=== PATIENT | female | born 1985 | race Caucasian/White ===

== ENCOUNTER → 2019-07-01 | Outpatient (REF) | payer OTHER | LOC: M LAB REF 09:55 | PROVIDERS: ATTEND Internal Medicine Endocrinology, Diabetes & Metabolism | DX: E04.1 Nontoxic single thyroid nodule (principal) ==

== ENCOUNTER 2019-10-22 21:54 | Emergency (ER) | payer OTHER ==
[~2019-10-22] VITALS: Ht 157.5 cm; Wt 86.8 kg
[2019-10-22] MEDS ORDERED: LISI-538 PO (22:01)
[2019-10-22] MEDS ORDERED: OSEL75CA PO (22:01)
[2019-10-22] MEDS ORDERED: SYNT137T7 PO (22:01)
[2019-10-22] MEDS ORDERED: HYDR25TAB PO (22:01)
[2019-10-22] MEDS ORDERED: NS 1,000 ML IV ONE (23:00)
[2019-10-22] MEDS ORDERED: ONDANSETRON 4MG/2ML VIAL (J2405) IV ONE (23:00)
[2019-10-23 00:09] LABS: ALBUMIN 4.1 GM/DL (3.2-5.2); ALT/SGPT 45 U/L (12-78); BILIRUBIN,DIRECT 0.2 MG/DL (0.0-0.2); BILIRUBIN,TOTAL 0.4 MG/DL (0.2-1.0); BLOOD UREA NITROGEN 13 MG/DL (7-18); CALCIUM LEVEL 8.6 MG/DL (8.5-10.1); CARBON DIOXIDE LEVEL 27 MEQ/L (21-32); CHLORIDE LEVEL 100 MEQ/L (98-107); CREATININE FOR GFR 0.99 MG/DL (0.55-1.30); GLOMERULAR FILTRATION RATE > 60.0 (>60); GLUCOSE, FASTING 97 MG/DL (70-100); HEMATOCRIT 37.7 % (36.0-47.0); HEMOGLOBIN 12.8 g/dl (12.0-15.5); LIPASE 80 U/L (73-393); LYMPH # 0.6 10^3/uL (1.5-5.0); LYMPH % 15.6 % (24.0-44.0); MEAN CORPUSCULAR VOLUME 88.3 fl (80.0-96.0); MONO # 0.4 10^3/uL (0.0-0.8); MONO % 9.3 % (0.0-5.0); NEUTROPHILS % 74.3 % (36.0-66.0); PLATELET COUNT, AUTOMATED 264 10^3/uL (150-450); POTASSIUM SERUM 3.5 MEQ/L (3.5-5.1); RED BLOOD COUNT 4.27 10^6/uL (4.00-5.40); SODIUM LEVEL 136 MEQ/L (136-145); TOTAL PROTEIN 7.6 GM/DL (6.4-8.2)
[2019-10-23 00:22] LABS: HCG, SERUM QUALITATIVE NEGATIVE (NEGATIVE)
[2019-10-23] MEDS ORDERED: KETOROLAC 30 MG/ML VIAL (J1885) As Ordered ONE (00:32)
[2019-10-23] MEDS ORDERED: KETOROLAC 30 MG/ML VIAL (J1885) IV ONE (00:45)
[2019-10-23] MEDS ORDERED: ONDA4TAB6 PO (02:04)
[2019-10-23 02:17] VITALS: BP 106/60
== END 2019-10-23 02:19 | disposition home or self-care (01) ==
LOC: M ED 21:54
DX: J11.89 Influenza due to unidentified influenza virus with other manifestations (principal)
CPT/HCPCS: 80048; 80076; 83690; 84703; 85025; 96374; 96375; 99284; J1885; J2405

== ENCOUNTER → 2020-10-02 | Outpatient (CLI) | payer OTHER ==
[~2020-10-02] MED LIST: HYDR-3490 PO; LISI20TA33 PO; ONDA4TAB6 PO; OSEL75CA PO; SYNT137T7 PO
[2020-10-03 13:09] LABS: THRYOGLOBULIN ANTIBODIES (ATA) < 1.0 IU/mL (0.0-0.9); THYROGLOBULIN QUANTITATIVE < 0.1 ng/mL (1.5-38.5)
== END ==
LOC: M PLALAB 09:09
PROVIDERS: ATTEND Nurse Practitioner Family
DX: C73 Malignant neoplasm of thyroid gland (principal)

== ENCOUNTER → 2021-04-27 | Outpatient (CLI) | payer OTHER ==
[2021-04-27 14:25] LABS: CALCIUM LEVEL 9.1 MG/DL (8.5-10.1); FREE T4 1.51 NG/DL (0.76-1.46); THYROID STIMULATING HORMONE 0.197 uIU/ML (0.358-3.740)
[2021-04-28 12:08] LABS: THRYOGLOBULIN ANTIBODIES (ATA) < 1.0 IU/mL (0.0-0.9); THYROGLOBULIN QUANTITATIVE < 0.1 ng/mL (1.5-38.5)
== END ==
LOC: M PLALAB 09:04
PROVIDERS: ATTEND Internal Medicine Endocrinology, Diabetes & Metabolism
DX: E89.0 Postprocedural hypothyroidism (principal); E21.5 Disorder of parathyroid gland, unspecified; C73 Malignant neoplasm of thyroid gland

== ENCOUNTER → 2021-07-30 | Outpatient (CLI) | payer OTHER ==
[2021-07-30 14:12] LABS: BLOOD UREA NITROGEN 14 MG/DL (7-18); CREATININE FOR GFR 0.76 MG/DL (0.55-1.30); GLOMERULAR FILTRATION RATE > 60.0 (>60)
== END ==
LOC: M LAB 12:17
PROVIDERS: ATTEND Otolaryngology
DX: H90.3 Sensorineural hearing loss, bilateral (principal); H83.09 Labyrinthitis, unspecified ear

== ENCOUNTER 2021-08-04 13:31 | Emergency (ER) | payer OTHER ==
[~2021-08-04] VITALS: Ht 157.5 cm; Wt 92.3 kg
[2021-08-04] MEDS ORDERED: NS 1,000 ML IV ONE (14:15)
[2021-08-04 15:45] VITALS: BP 113/61
[2021-08-04 15:56] VITALS: O2SAT 98
--- NOTE | 2021-08-07 07:38 | ECGEPIP ---
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
== END 2021-08-04 17:00 | disposition home or self-care (01) ==
LOC: M ED 13:31 → EDBD 13:31 → M ED 17:00
DX: R55 Syncope and collapse (principal); E07.9 Disorder of thyroid, unspecified; H90.3 Sensorineural hearing loss, bilateral; Z86.69 Personal history of other diseases of the nervous system and sense organs; Z79.899 Other long term (current) drug therapy; Z79.890 Hormone replacement therapy

== ENCOUNTER → 2021-08-23 | Outpatient (CLI) | payer OTHER ==
[~2021-08-23] MED LIST changes: +AMMONIA AROMATIC INHALANT ONE; +PROHANCE 279.3MG/ML 15ML VIAL ONE; +PROHANCE 279.3MG/ML 5ML VIAL ONE
--- NOTE | 2021-08-23 12:20 | REPVR ---
PROCEDURE INFORMATION: Exam: MR Head Without and With Contrast; Internal Auditory Canals Exam date and time: 08/23/2021 9:12 AM Age: 36 years old Clinical indication: Dizziness; Additional info: Hearing loss, vertigo TECHNIQUE: Imaging protocol: MR of the head without and with intravenous contrast. Exam focused on the internal auditory canals. Contrast material: PROHANCE; Contrast volume: 18 ml; Contrast route: INTRAVENOUS (IV); COMPARISON: No relevant prior studies available. FINDINGS: Brain: No evidence of restricted diffusion to suggest an acute infarct. No mass, midline shift, or mass effect. No evidence of hemorrhage. No abnormal enhancement. Ventricles: No ventriculomegaly. Sinuses: Small mucous retention cyst in right sphenoid sinus. Mastoid air cells: Unremarkable. No effusions. Internal auditory canals: Bilateral internal auditory canals are unremarkable. Basilar cisterns are unremarkable. Bones/joints: Unremarkable. IMPRESSION: Negative exam. Bilateral internal auditory canals are unremarkable. Basilar cisterns are unremarkable. Electronically signed by: Sumi Byers On 08/23/2021 12:19:47 PM
== END ==
LOC: M PLAIMG 08-04 12:12
PROVIDERS: ATTEND Otolaryngology
DX: H90.3 Sensorineural hearing loss, bilateral (principal)
CPT/HCPCS: 70553; A9576

== ENCOUNTER → 2022-01-31 | Outpatient (CLI) | payer OTHER ==
[~2022-01-31] MED LIST changes: -AMMONIA AROMATIC INHALANT ONE; -PROHANCE 279.3MG/ML 15ML VIAL ONE; -PROHANCE 279.3MG/ML 5ML VIAL ONE
[2022-02-01 12:12] LABS: THRYOGLOBULIN ANTIBODIES (ATA) < 1.0 IU/mL (0.0-0.9); THYROGLOBULIN QUANTITATIVE 0.2 ng/mL (1.5-38.5)
== END ==
LOC: M LAB 09:09
PROVIDERS: ATTEND Nurse Practitioner Family
DX: C73 Malignant neoplasm of thyroid gland (principal)

== ENCOUNTER → 2024-11-25 | Outpatient (CLI) | payer OTHER ==
[~2024-11-25] MED LIST changes: +ISOVUE-370 76% 100ML VIAL ONE; +ONDA-282 PO; -ONDA4TAB6 PO
== END ==
LOC: M PLAIMG 07:44
PROVIDERS: ATTEND Nurse Practitioner Primary Care
DX: R91.8 Other nonspecific abnormal finding of lung field (principal); J84.10 Pulmonary fibrosis, unspecified; I89.8 Other specified noninfective disorders of lymphatic vessels and lymph nodes
CPT/HCPCS: 71260; Q9967